=== PATIENT | female | born 1970 | race Caucasian/White ===

== ENCOUNTER 2023-07-29 07:42 | Day surgery (SDC) | payer OTHER ==
[~2023-07-29 07:42] MED LIST: Midazolam 1 MG/ML 2 ML SDV ONE; Propofol 200 MG/20 ML SDV ONE; fentaNYL 50 MCG/ML SDV ONE
[2023-07-29] MEDS: Lactated Ringers 1,000 ML IV SCH (08:24)
== END 2023-07-29 10:15 | disposition home or self-care (01) ==
LOC: JP.SDS 07:42
PROVIDERS: ATTEND Student in an Organized Health Care Education/Training Program
DX: Z12.11 Encounter for screening for malignant neoplasm of colon (principal); F41.9 Anxiety disorder, unspecified; Z79.899 Other long term (current) drug therapy
CPT/HCPCS: 45378; J2250; J2704; J3010; J7120